=== PATIENT | female | born 1975 | race Caucasian/White ===

== ENCOUNTER → 2025-02-07 09:20 | Outpatient (REF) | payer BC, SELFPAY | LOC: HWRAD 09:20 | PROVIDERS: ATTENDING PHYSICIAN Nurse Practitioner Family; FAMILY PHYSICIAN Internal Medicine | DX: R10.811 Right upper quadrant abdominal tenderness (principal); Z12.31 Encounter for screening mammogram for malignant neoplasm of breast | CPT/HCPCS: 76700; 77063; 77067 ==

== ENCOUNTER → 2025-08-29 13:34 | Outpatient (REF) | payer BC, SELFPAY | LOC: RCS 13:34 | PROVIDERS: ATTENDING PHYSICIAN Nurse Practitioner Family | DX: R53.83 Other fatigue (principal); R07.89 Other chest pain; I10 Essential (primary) hypertension; R20.2 Paresthesia of skin; F33.41 Major depressive disorder, recurrent, in partial remission; L40.52 Psoriatic arthritis mutilans; K21.9 Gastro-esophageal reflux disease without esophagitis; F41.1 Generalized anxiety disorder; G47.9 Sleep disorder, unspecified; G93.5 Compression of brain | CPT/HCPCS: 93005; 93017 ==